=== PATIENT | male | born 1960 ===

== ENCOUNTER 2025-05-10 07:54 | Inpatient (IN) | payer MEDICARE, OTHER ==
[2025-05-10] VITALS (10 sets, daily range): BP systolic 100–157; BP diastolic 44–97; PULSE 69–84; RESP 15–24; TEMP 97.4–98; O2SAT 93–99
[~2025-05-10] VITALS: Ht 177.8 cm; Wt 143.3 kg
--- NOTE | 2025-05-10 08:05 | ED.PDOC ---
SOB-HPI HPI Comments 64-year-old male presents here with shortness of breath. 911 was called at home. Patient was diaphoretic had blue lips had increased work of breathing. He was placed on CPAP by paramedics. He was brought to the ER. Upon his ER arrival continued to be short of breath upon removing the CPAP and BiPAP was immediately initiated. Patient states he has not been recently. No recent fever. Mild cough. He does have a history of CHF and has a history of fluid in his lungs. History is limited due to patient being short of breath on unable to speak. Chief Complaint: Shortness of Breath Time Seen by MD: 08:04 Reviewed notes: Medications, Allergies Information Source: Patient, Emergency Med Personnel Mode of Arrival: EMS Severity: Moderate Timing: Hours Duration: Since onset Context: At Rest, With Light Exertion, With Heavy Exertion History of: CHF, Other (HTN, DC ) Prehospital treatment: None Associated Signs and Symptoms: None Radiation: No Radiation If cough with SOB: Non-Productive Past Medical History PAST MEDICAL HISTORY: CHF, HTN, DC Past Medical History (Other): History of myocardial infarction Surgical History: Denies all surgeries Family History Family History: Reviewed,noncontributory to illness, No family hx of Cancer, No family hx of DM, No family hx of Heart kenisha, No family hx of HTN, No family hx ofKidney kenisha, No family hx of Liver kenisha, No family hx of Lung kenisha, No family hx of Stroke Social History Smoker: Non-Smoker Alcohol: Denies ETOH Use Drugs: Denies Drug Use Lives In: Home Constitutional: denies: chills, diaphoresis, fatigue, fever, malaise, sweats, weakness, others EENTM: denies: blurred vision, double vision, ear bleeding, ear discharge, ear drainage, ear pain, ear ringing, eye pain, eye redness, hearing loss, mouth pain, mouth swelling, nasal discharge, nose bleeding, nose congestion, nose pain, photophobia, tearing, throat pain, throat swelling, voice changes, others Respiratory: reports: SOB at rest, shortness of breath, SOB with excertion; denies: cough, hemoptysis, orthopnea, stridor, wheezing, others Cardiovascular: denies: chest pain, dizzy spells, diaphoresis, Dyspnea on exertion, edema, irregular heart beat, left arm pain, lightheadedness, palpitations, PND, syncope, others Gastrointestinal: denies: abdomen distended, abdominal pain, blood streaked bowels, constipated, diarrhea, dysphagia, difficulty swallowing, hematemesis, melena, nausea, poor appetite, poor fluid intake, rectal bleeding, rectal pain, vomiting, others Genitourinary: denies: burning, dysuria, flank pain, frequency, hematuria, incontinence, penile discharge, penile sore, pain, testicle pain, testicle swelling, urgency, others Neurological: denies: dizziness, fainting, headache, left sided numbness, left sided weakness, numbness, paresthesia, pre-existing deficit, right sided numbness, right sided weakness, seizure, speech problems, tingling, tremors, weakness, others Musculoskeletal: denies: back pain, gout, joint pain, joint swelling, muscle pain, muscle stiffness, neck pain, others Integumetry: denies: bruises, change in color, change in hair/nails, dryness, laceration, lesions, lumps, rash, wounds, others Allergic/Immunocompromised: denies: Difficulty Healing, Frequent Infections, Hives, Itching, others Hematologic/Lymphatic: denies: anemia, blood clots, easy bleeding, easy bruising, swollen glands, others Endocrine: denies: excessive hunger, excessive sweating, excessive thirst, excessive urination, flushing, intolerance to cold, intolerance to heat, unexplained weight gain, unexplained weight loss, others Psychiatric: denies: anxiety, bipolar disorder, depression, hopeless, panic disorder, schizophrenia, sleepless, suicidal, others All Other Systems: Reviewed and Negative Physical Exam Exam Comments Patient on CPAP when move to BiPAP patient in between had increased work of breathing tachypneic tachycardic General Appearance: Severe Distress HEENT: Normal ENT Inspection, Pharynx Normal, TMs Normal Neck: Full Range of Motion, Non-Tender, Normal, Normal Inspection Respiratory: Respiratory Distress, Other (Crackles to right lung field) Cardiovascular: No Edema, No JVD, No Murmur, No Gallop, Normal Peripheral Pulses, Regular Rate/Rhythm Breast Exam: Deferred Gastrointestinal: No Organomegaly, Non Tender, No Pulsatile Mass, Normal Bowel Sounds, Soft Genitalia: Deferred Pelvic: Deferred Rectal: Deferred Extremities: No calf tenderness, Normal capillary refill, Normal inspection, Normal range of motion, Non-tender, No pedal edema Musculoskeletal : Apperance: Normal Neurologic: Alert, No Motor Deficits, Normal Affect, Normal Mood, No Sensory Deficits Cerebellar Function: Normal Reflexes: Normal Skin: Dry, Normal Color, Warm Lymphatic: No Adenopathy EKG EKG : Comments Sinus rhythm rate of 79 PVCs left bundle branch block no significant ST changes Was a procedure done? Was a procedure done?: No Differential Dx Differential Diagnosis: Anxiety, Asthma, Bronchitis, CHF, COPD, Hypertension, Myocardial infarction, Panic Attack, Pneumonia, Pulmonary Embolism, Respiratory Distress, Sinusitis, Allergic Rhinitis, Otitis Media X-Ray, Labs, Meds, VS Vital Signs Date Time Temp Pulse Resp B/P (MAP) Pulse Ox O2 Delivery O2 Flow Rate FiO2 05/10/25 09:04 97.4 84 24 157/97 96 35 97.4 05/10/25 08:10 88 157/97 Facial BiPAP Mask 35 05/10/25 07:55 97.4 86 26 157/97 98 97.4 Lab Test 05/10/25 09:22 05/10/25 08:26 Range/Units Blood Gas Specimen Type Arterial Blood Gas Sample Site Right radial Blood Gas Patient Temperature 37.0 Arterial Blood Date Drawn [id number] Arterial Blood pH 7.433 7.350-7.450 Arterial Blood Partial Pressure CO2 36.7 35.0-48.0 mmHg Arterial Blood Partial Pressure O2 84.2 83.0-108.0 mmHg Arterial Blood HCO3 24.0 21.0-28.0 mmol/L Arterial Blood Oxygen Saturation 96.5 94.0-98.0 % Arterial Blood Base Excess 0.1 -2.0-3.0 mmol/L Arterial Blood Oxyhemoglobin 94.8 94.0-98.0 % Arterial Blood Carboxyhemoglobin 1.5 0.5-1.5 % Arterial Blood Methemoglobin 0.3 0.0-1.5 % Keron Test Yes Blood Gas Total Hemoglobin 14.60 13.5-17.5 g/dL Blood Gas Set Respiration Rate 12.0 Blood Gas Modality Mask - bipap FiO2 % 35.0 Blood Gas EPAP 5 Blood Gas IPAP 15 White Blood Count 5.3 4.4-10.8 10^3/uL Red Blood Count 4.58 4.5-5.90 10^6/uL Hemoglobin 14.6 13.5-17.5 g/dL Hematocrit 43.1 41.0-53.0 % Mean Corpuscular Volume 94.0 80.0-100.0 fL Mean Corpuscular Hemoglobin 31.9 28.0-32.0 pg Mean Corpuscular Hemoglobin Concent 33.9 32.0-36.0 g/dL Red Cell Distribution Width 13.7 11.8-14.3 % Platelet Count 198 140-450 10^3/uL Mean Platelet Volume 8.9 6.9-10.8 fL Neutrophils (%) (Auto) 64.0 37.0-80.0 % Lymphocytes (%) (Auto) 26.1 10.0-50.0 % Monocytes (%) (Auto) 5.6 0.0-12.0 % Eosinophils (%) (Auto) 3.8 0.0-7.0 % Basophils (%) (Auto) 0.5 0.0-2.0 % Neutrophils # (Auto) 3.4 1.6-8.6 10 ^3/uL Lymphocytes # (Auto) 1.4 0.4-5.4 10 ^3/uL Monocytes # (Auto) 0.3 0-1.3 10 ^3/uL Eosinophils # (Auto) 0.2 0-0.8 10 ^3/uL Basophils # (Auto) 0 0-0.2 10 ^3/uL Nucleated Red Blood Cells 0.1 % Sodium Level 139 136-145 mmol/L Potassium Level 4.1 3.5-5.1 mmol/L Chloride Level 103 98-107 mmol/L Carbon Dioxide Level 28 20-31 mmol/L Anion Gap 8 5-15 Blood Urea Nitrogen 14 9-23 mg/dL Creatinine 1.04 0.700-1.30 mg/dL Glomerular Filtration Rate Calc 80 >90 mL/min BUN/Creatinine Ratio 13.5 10.0-20.0 Serum Glucose 234 H 74-106 mg/dL Calcium Level 8.8 8.7-10.4 mg/dL Troponin I High Sensitivity 15 </=54 ng/L B-Type Natriuretic Peptide 379.24 0-100 pg/mL [facility] [address] [facility] [address] Ph: [phone] DIAGNOSTIC IMAGING Diagnostic Imaging Report : [id number] Signed PATIENT: VALENTIN ROMERO ACCT: [id number] UNIT: [id number] : 1960 LOC: ER ROOM / BED: / AGE / SEX: 64 / M ADM STATUS: REG ER SERVICE 5 ORDERING PHYSICIAN: NASRIN HARPER MD PROCEDURE(s): CXRP - CHEST PORTABLE REASON: Shortness of breath ORDER NUMBER(s): [id number], ACCESSION NUMBER(s): [id number] CHEST RADIOGRAPH Indication: Shortness of breath Technique: Single frontal view of the chest was obtained COMPARISON: None FINDINGS: Lines and Tubes: None Lungs: Severe multifocal airspace disease Pleura: No effusion. No pneumothorax. Cardiomediastinal contours: Cardiomegaly Bones: Unremarkable IMPRESSION: Severe multifocal airspace disease. 64-year-old male with a known history of CHF presents here with likely CHF exa cerbation. He was found to be diaphoretic pale with increased work of breathing and cyanotic lips upon medic arrival. He was immediately placed on CPAP upon medic arrival. We attempted to take him off the CPAP however patient had significant work of breathing and was immediately placed on BiPAP by myself. Initially placed on 12/5 setting however he continued to require more support and was changed to 15/5. At this time patient is much more comfortable. I spoke with the patient's daughter Jessica over the phone. At this time CBC, BMP BNP chest x-ray troponin ABG and EKG has been ordered. At this time blood work has returned. CBC, BMP within normal limits. BNP slightly elevated in the 300s. Chest x-ray with evidence of severe multifocal airspace disease. EKG with PVC has been no significant ST changes. ABG has been reviewed by myself and are within parameters. Troponin is negative. At this time however patient is still requires BiPAP given his significant work of breathing. I have given him albuterol, ipratropium and dexamethasone. Hospitalist team has been contacted. Images Reviewed?: Images reviewed and evaluated by me Time of 1ST Reevaluation: 08:55 Reevaluation 1ST: Unchanged Patient Education/Counseling: Diagnosis, Treatment Family Education/Counseling: No Family Present SEPSIS Sepsis Screen Physician Orders Chest Portable (05/10/25 08:06) Fine Dining Server (05/10/25 08:06) Blood Pressure (05/10/25 08:06) Pulse Oximetry (05/10/25 08:06) Electrocardigram (05/10/25 08:06) Troponin-I Hs (05/10/25 09:06) Troponin-I Hs (05/10/25 11:06) Electrocardigram (05/10/25 09:06) Electrocardigram (05/10/25 11:06) BIPAP (05/10/25 08:10) Abg W/ Co-Ox (05/10/25 09:10) Vital Signs Date Time Temp Pulse Resp B/P (MAP) Pulse Ox O2 Delivery O2 Flow Rate FiO2 05/10/25 09:04 97.4 84 24 157/97 96 35 97.4 05/10/25 08:10 88 157/97 Facial BiPAP Mask 35 05/10/25 07:55 97.4 86 26 157/97 98 97.4 Laboratory Tests Test 05/10/25 08:26 White Blood Count 5.3 10^3/uL (4.4-10.8) Departure 1 Departure Time of Disposition: 08:21 Impression: Primary Impression: Shortness of breath Additional Impression: Respiratory failure Qualified Codes: J96.00 - Acute respiratory failure, unspecified whether with hypoxia or hypercapnia Disposition: ADMITTED INPATIENT Condition: Guarded Critical Care Note Critical Care Time?: Yes (45 min-critical care time only) Critical care comment: I was called to see the patient immediately upon arrival. Patient on CPAP. Concern for immediate respiratory deterioration. Time spent multiple re- evaluations, evaluating ABG, speaking to hospitalist team Stability Stability form required: No Heart Score Heart Score: Heart Score Response (Comments) Value History Slightly Suspicious 0 EKG Repolarization Disturb 1 Age >65 2 Risk Factors >3 or Hx ASHD 2 Troponin Normal limit 0 Total 5 I personally scribed for NASRIN HARPER MD ([employer]) on 05/10/25 at 08:05. Electronically submitted by Ashley Almanza ([employer]). I personally scribed for NASRIN HARPER MD ([email or web address]) on 05/10/25 at 08:37. Electronically submitted by Ashley Almanza ([employer]). I personally scribed for NASRIN HARPER MD ([email or web address]) on 05/10/25 at 08:46. Electronically submitted by Ashley Almanza ([email or web address]). NASRIN HARPER MD May 10, 2025 08:05
[2025-05-10 08:42] LABS: Hematocrit 43.1 % (41.0-53.0); Hemoglobin 14.6 g/dL (13.5-17.5); Mean Corpuscular Hemoglobin 31.9 pg (28.0-32.0); Mean Corpuscular Volume 94.0 fL (80.0-100.0); Nucleated Red Blood Cells % 0.1 %
--- NOTE | 2025-05-10 08:42 | DVH ---
CHEST RADIOGRAPH Indication: Shortness of breath Technique: Single frontal view of the chest was obtained COMPARISON: None FINDINGS: Lines and Tubes: None Lungs: Severe multifocal airspace disease Pleura: No effusion. No pneumothorax. Cardiomediastinal contours: Cardiomegaly Bones: Unremarkable IMPRESSION: Severe multifocal airspace disease.
[2025-05-10 08:52] LABS: Chloride 103 mmol/L (98-107); Potassium 4.1 mmol/L (3.5-5.1); Sodium 139 mmol/L (136-145)
[2025-05-10 08:53] LABS: Anion Gap 8 (5-15); Calcium 8.8 mg/dL (8.7-10.4); Carbon Dioxide 28 mmol/L (20-31)
[2025-05-10 08:58] LABS: BUN/Creatinine Ratio 13.5 (10.0-20.0); Blood Urea Nitrogen 14 mg/dL (9-23); Glucose 234 mg/dL (74-106)
[2025-05-10 09:27] LABS: Base Excess 0.1 mmol/L (-2.0-3.0)
[2025-05-10] MEDS: IPRATROPIUM BROM 0.5 MG/2.5ML INH SOL NEB ONE (09:54)
[2025-05-10] MEDS: ALBUTEROL SULF 2.5 MG/0.5ML(0.5%) NEB SOLN NEB ONE (09:54)
--- NOTE | 2025-05-10 10:02 | DVHHP2 ---
History of Present Illness Reason for Visit: SOB History of Present Illness Codey Persaud is a 64-year-old male with past medical history of CHF, hypertension, left arm tendon surgery, and OR who presents to the ED with shortness of breath that started early this morning around 6. Patient also reports left leg cramping that started around 3:00 a.m., reports 7/10 cramping like and intermittent pain. Patient reports that he extends his left foot upright using his right foot and it helps relieve the cramping pain. Patient also reports voiding dark urine. 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 Patient is currently on an Oxymizer. Patient denies any recent sick contacts, recent trauma or injury, recent ingestion of spoiled food, chest pain, fever, chills, lightheadedness, weakness, dizziness, abdominal pain, nausea, vomiting, or diarrhea. Cardiovascular: CHF, HTN, OR Past Surgical History: Other (Left arm tendon surgery) Family History: DM, Hypertension, Other (Mom with diabetes and hypertension. Dad with CABG.) Smoke: No ALCOHOL: none Drugs: None Lives: with Family Domestic Violence: Neg Review of Systems Respiratory: Shortness of breath Musculoskeletal: leg pain (Left) Allergies: Coded Allergies: Penicillins (Verified Allergy, Unknown, 05/10/25) Exam Vital Signs Vital Signs Date Time Temp Pulse Resp B/P (MAP) Pulse Ox O2 Delivery O2 Flow Rate FiO2 05/10/25 09:57 24 97 Oxymizer 6 N/A 05/10/25 09:04 97.4 84 157/97 97.4 General Appearance: Alert, Oriented X3, Cooperative, mild distress HEENT: Atraumatic, PERRLA, EOMI, Mucous membr. moist/pink Respiratory: Normal air movement Cardiovascular: Regular rate, Normal S1, Normal S2 Abdominal: Normal bowel sounds, Soft Extremities: No clubbing, No cyanosis Neuro: Normal speech, Strength at 5/5 X4 ext, Normal tone, Sensation intact Psych/Mental Status: Mental status NL, Mood NL Labs/Xrays Labs Test 05/10/25 09:52 05/10/25 09:22 05/10/25 08:26 Range/Units Blood Gas Specimen Type Arterial Blood Gas Sample Site Right radial Blood Gas Patient Temperature 37.0 Arterial Blood Date Drawn [id number] Arterial Blood pH 7.433 7.350-7.450 Arterial Blood Partial Pressure CO2 36.7 35.0-48.0 mmHg Arterial Blood Partial Pressure O2 84.2 83.0-108.0 mmHg Arterial Blood HCO3 24.0 21.0-28.0 mmol/L Arterial Blood Oxygen Saturation 96.5 94.0-98.0 % Arterial Blood Base Excess 0.1 -2.0-3.0 mmol/L Arterial Blood Oxyhemoglobin 94.8 94.0-98.0 % Arterial Blood Carboxyhemoglobin 1.5 0.5-1.5 % Arterial Blood Methemoglobin 0.3 0.0-1.5 % Keron Test Yes Blood Gas Total Hemoglobin 14.60 13.5-17.5 g/dL Blood Gas Set Respiration Rate 12.0 Blood Gas Modality Mask - bipap FiO2 % 35.0 Blood Gas EPAP 5 Blood Gas IPAP 15 White Blood Count 5.3 4.4-10.8 10^3/uL Red Blood Count 4.58 4.5-5.90 10^6/uL Hemoglobin 14.6 13.5-17.5 g/dL Hematocrit 43.1 41.0-53.0 % Mean Corpuscular Volume 94.0 80.0-100.0 fL Mean Corpuscular Hemoglobin 31.9 28.0-32.0 pg Mean Corpuscular Hemoglobin Concent 33.9 32.0-36.0 g/dL Red Cell Distribution Width 13.7 11.8-14.3 % Platelet Count 198 140-450 10^3/uL Mean Platelet Volume 8.9 6.9-10.8 fL Neutrophils (%) (Auto) 64.0 37.0-80.0 % Lymphocytes (%) (Auto) 26.1 10.0-50.0 % Monocytes (%) (Auto) 5.6 0.0-12.0 % Eosinophils (%) (Auto) 3.8 0.0-7.0 % Basophils (%) (Auto) 0.5 0.0-2.0 % Neutrophils # (Auto) 3.4 1.6-8.6 10 ^3/uL Lymphocytes # (Auto) 1.4 0.4-5.4 10 ^3/uL Monocytes # (Auto) 0.3 0-1.3 10 ^3/uL Eosinophils # (Auto) 0.2 0-0.8 10 ^3/uL Basophils # (Auto) 0 0-0.2 10 ^3/uL Nucleated Red Blood Cells 0.1 % Sodium Level 139 136-145 mmol/L Potassium Level 4.1 3.5-5.1 mmol/L Chloride Level 103 98-107 mmol/L Carbon Dioxide Level 28 20-31 mmol/L Anion Gap 8 5-15 Blood Urea Nitrogen 14 9-23 mg/dL Creatinine 1.04 0.700-1.30 mg/dL Glomerular Filtration Rate Calc 80 >90 mL/min BUN/Creatinine Ratio 13.5 10.0-20.0 Serum Glucose 234 H 74-106 mg/dL Calcium Level 8.8 8.7-10.4 mg/dL B-Type Natriuretic Peptide 379.24 0-100 pg/mL CHEST RADIOGRAPH Indication: Shortness of breath Technique: Single frontal view of the chest was obtained COMPARISON: None FINDINGS: Lines and Tubes: None Lungs: Severe multifocal airspace disease Pleura: No effusion. No pneumothorax. Cardiomediastinal contours: Cardiomegaly Bones: Unremarkable IMPRESSION: Severe multifocal airspace disease. SEPSIS Sepsis Screen Date sepsis recognized/suspect: May 10, 2025 Time Sepsis recognized/suspect: 754 Recent Procedure: No On Antibiotic Therapy: No Respiratory Rate >20: Yes Heart Rate >90: No Temp<36 C (96.8 F) or >38.3 C: No SBP <90 or MAP <65 mmHG: No New Acute Mental Status Change: No Is the patient on CPAP, BIPAP,: Yes Physician Orders Chest Portable (05/10/25 08:06) Android Framework Developer (05/10/25 08:06) Blood Pressure (05/10/25 08:06) Pulse Oximetry (05/10/25 08:06) Electrocardigram (05/10/25 08:06) Troponin-I Hs (05/10/25 09:06) Troponin-I Hs (05/10/25 11:06) Electrocardigram (05/10/25 09:06) Electrocardigram (05/10/25 11:06) BIPAP (05/10/25 08:10) Abg W/ Co-Ox (05/10/25 09:10) Vital Signs Date Time Temp Pulse Resp B/P (MAP) Pulse Ox O2 Delivery O2 Flow Rate FiO2 05/10/25 09:57 24 97 Oxymizer 6 N/A 05/10/25 09:04 97.4 84 24 157/97 96 35 97.4 05/10/25 08:28 79 05/10/25 08:10 88 157/97 Facial BiPAP Mask 35 05/10/25 07:55 97.4 86 26 157/97 98 97.4 Laboratory Tests Test 05/10/25 08:26 White Blood Count 5.3 10^3/uL (4.4-10.8) Medications Medications Dose Ordered Sig/Leonor Route Start Time Stop Time Status Last Admin Dose Admin Albuterol 10 mg ONCE ONCE NEB 05/10/25 09:45 05/10/25 09:46 DC 05/10/25 09:54 10 MG Ipratropium Stearns 0.5 mg ONCE ONCE NEB 05/10/25 09:45 05/10/25 09:46 DC 05/10/25 09:54 0.5 MG Assessment/Plan Assessment/Plan Assessment Acute on chronic CHF exacerbation Acute hypoxic respiratory failure likely due to pneumonia Left lower extremity pain rule out DVT Morbid obesity History of hypertension History of OR History of left arm tendon surgery Plan Admit to [facility] IV antibiotics-ceftriaxone Supplemental oxygen Duo nebs Steroids EKG Troponin BNP Diurese Strict I&Os Daily weight Hemoglobin A1c ISS and Accu-Cheks UA UDS ESR CRP Echo ordered D-dimer Bilateral lower extremity venous ultrasound CK Diet Home medications reconciled DVT prophylaxis-Lovenox PUD prophylaxis-PPIs Discussed plan of care with patient and nurse Counseled patient on lifestyle modifications, diet, and exercise [id number] Preventive counseling healthy eating habits, physical activity, and regular checkups Plan discussed with: Patient, Spouse, Daughter Date of Service: May 10, 2025 Billing Provider: MING PEREYRA Common Visit Codes: 08173-OEFIMIT INP/OBS CARE (HIGH) Secondary Visit Codes: 75648-[id number] COUNSELING IND MING PEREYRA May 10, 2025 10:02
[2025-05-10] MEDS ORDERED: ONDANSETRON HCL 4 MG/2 ML VIAL IV PRN (10:15)
[2025-05-10] MEDS ORDERED: DEXTROSE (50%) 50ML SYRG IV PRN (10:15)
[2025-05-10] MEDS ORDERED: ACETAMINOPHEN 325 MG TAB PO PRN (10:15)
--- NOTE | 2025-05-10 11:32 | ECG ---
[facility] Test Date: 2025-05-10 Test Time: 08:25:41 Pat Name: VALENTIN ROMERO Department: [facility] ED Room: [address] [place] [address] Gender: M Forensic Examiner: PIA : [id number] Requested By: NASRIN HARPER Order Number: [id number] Reading MD: Maximo Gutierrez Measurements Intervals [place] Rate: 79 P: 16 FL: 216 QRS: -32 QRSD: 146 T: 128 QT: 421 QTc: 483 Interpretive Statements Sinus rhythm Ventricular premature complex Borderline prolonged FL interval Left bundle branch block Electronically Signed On 05-10-2025 20:42:10 PDT by Maximo Gutierrez Please click the below link to view image of tracing.
[2025-05-10] MEDS: ACCU-CHEK COMFORT CURVE STRIP VI SCH (12:17)
[2025-05-10] MEDS: InsuLIN REG 1unit/0.01ml Soln (100units/ml) SC SCH (12:21)
[2025-05-10 12:33] LABS: Urine Protein, UAD Negative (Negative)
[2025-05-10] MEDS: ENOXAPARIN SOD 40 MG/0.4 ML SYRINGE SC SCH (12:34)
[2025-05-10 12:47] LABS: Amphetamine Screen, Urine Neg (NEGATIVE); Barbiturate Scree,Urine Neg (NEGATIVE); Benzodiazephine Screen, Urine Neg (NEGATIVE); Cannabinoid Screen, Urine Neg (NEGATIVE); Cocaine Screen, Urine Neg (NEGATIVE); Opiate Scree,Urine Neg (NEGATIVE); Phencyclidine Screen, Urine Neg (NEGATIVE)
[2025-05-10] MEDS: IPRATROPIUM BROM 0.5 MG/2.5ML INH SOL NEB SCH (13:16)
[2025-05-10] MEDS: ALBUTEROL SULF 2.5 MG/0.5ML(0.5%) NEB SOLN NEB SCH (13:16)
--- NOTE | 2025-05-10 13:26 | DVH ---
CLINICAL HISTORY: r/o dvt TECHNIQUE: Color and duplex doppler imagine of the bilateral lower extremity veins was performed. Ves siddhartha compression and augmentation if possible was also performed. COMPARISON: None FINDINGS: Right Lower Extremity: Right common femoral vein: Normal compressibility and flow. Right superficial femoral vein: Normal compressibility and flow. Right popliteal vein: Normal compressibility and flow. Proximal calf veins demonstrate flow. Left Lower Extremity: Left common femoral vein: Normal compressibility and flow. Left superficial femoral vein: Normal compressibility and flow. Left popliteal vein: Normal compressibility and flow. Proximal calf veins demonstrate flow. IMPRESSION: NO SONOGRAPHIC EVIDENCE FOR DEEP VENOUS THROMBOSIS IN THE BILATERAL LOWER EXTREMITY VEINS.
--- NOTE | 2025-05-10 18:33 | DVHSR ---
APPROVED REPORT EXAM: Two-dimensional and M-mode echocardiogram with Doppler and color Doppler. Blood Pressure: 157/97 mmHg INDICATION CHF exac RISK FACTORS Obesity: Height: 5'10", Weight: 315 DIMENSIONS LVDd6.9 (3.8-5.7cm)LA (2D)4.6 (1.9-4.0cm)Aortic Root3.7 (2.0-3.7cm) LVDs6.6 (2.5-4.0cm)LA (MM) (1.9-4.0cm)Aortic Cusp Exc2.1 (1.5-2.0cm) EF (%) 10.0 (55-70%)Rt. Atrium4.7 (1.9-4.0cm)Asc. Aorta cm IVSd1.3 (0.7-1.1cm)RV (D) (1.8-2.4cm) PWd1.1 (0.7-1.1cm) Mitral Valve MitralMitral Stenosis E wave0.82m/sMV Mean GR.mmHg A wave0.57m/sMV Peak GR.mmHg E/A ratio1.42D MVAcm2 DECEL [id number] 1/2 Timems Aortic Valve Aortic ValveAortic Stenosis V10.72m/Joanna Mean GR.4mmHg V21.36m/Joanna Peak GR.7mmHg LVOT Diameter2.4 (1.8-2.4cm)Doppler AVA2.39cm2 Pulmonic Valve V21.16m/s Tricuspid Valve TR Velocity3.57m/s [id number] Other Information Technically limited study due to body habitus. Conclusion DILATED LV SEVERE GLOBAL HYPOKINESIS LV EF IS ONLY 10% DYSKINESIS OF IVS MODERATELY DILATED LA AND RA RVSP IS 59 MM OF HG AND IS VERY HIGH SEVERE PULMONARY HYPERTENSION GROSSLY NORMAL VALVES NO EFFUSION
[2025-05-11] VITALS (16 sets, daily range): BP systolic 86–114; BP diastolic 50–57; PULSE 60–85; RESP 14–20; TEMP 97.6–98.7; O2SAT 85–99
[2025-05-11] MEDS ORDERED: ALL300T GT (00:38)
[2025-05-11] MEDS ORDERED: CARV12.544 PO (01:17)
[2025-05-11] MEDS ORDERED: SACU1TAB4 PO (01:17)
[2025-05-11 07:52] LABS: Hematocrit 39.9 % (41.0-53.0); Hemoglobin 13.9 g/dL (13.5-17.5); Mean Corpuscular Hemoglobin 32.6 pg (28.0-32.0); Mean Corpuscular Volume 93.7 fL (80.0-100.0); Nucleated Red Blood Cells % 0.0 %
[2025-05-11 08:12] LABS: Alanine Aminotransferase 29 U/L (7-40); Albumin 3.7 g/dL (3.2-4.8); Alkaline Phosphatase 54 U/L (46-116); Anion Gap 11 (5-15); BUN/Creatinine Ratio 14.9 (10.0-20.0); Blood Urea Nitrogen 15 mg/dL (9-23); Calcium 8.8 mg/dL (8.7-10.4); Carbon Dioxide 27 mmol/L (20-31); Chloride 104 mmol/L (98-107); Potassium 3.9 mmol/L (3.5-5.1); Sodium 142 mmol/L (136-145); Total Protein 6.4 g/dL (5.7-8.2)
[2025-05-11 08:14] LABS: Bilirubin, Total 1.3 mg/dL (0.2-1.0); Glucose 214 mg/dL (74-106)
[2025-05-11] MEDS: FUROSEMIDE 40 MG/4 ML VIAL IV SCH (09:27)
--- NOTE | 2025-05-11 13:48 | DVHPN2 ---
Reviewed: Care Plan, H&P, Labs, Medications, Previous Orders, Radiology Changes from previous H/P or p: No Changes Respiratory: Shortness of breath Musculoskeletal: leg pain (Left) Objective Vitals Vital Signs Date Time Temp Pulse Resp B/P (MAP) Pulse Ox O2 Delivery O2 Flow Rate FiO2 05/11/25 10:34 72 18 99 05/11/25 10:24 Nasal Cannula 2.0 05/11/25 10:24 28 05/11/25 09:27 94/50 05/11/25 09:00 97.6 97.6 Intake/Output Intake and Output 05/11/25 07:00 Intake Total 200 ml Balance 200 ml Intake Oral 200 ml Medications Current Medications Medications Dose Ordered Sig/Leonor Route Start Time Stop Time Status Last Admin Dose Admin Ceftriaxone Sodium 50 ml @ 100 mls/hr DAILY@09 IV 05/10/25 10:15 05/11/25 09:27 100 MLS/HR Diagnostic Test (Pha) 1 strip ACHS 05/10/25 11:30 05/11/25 11:46 1 STRIP Insulin Human Regular ACHS SC 05/10/25 11:30 05/11/25 11:48 4 UNITS Dextrose 50 ml UD PRN IV 05/10/25 10:15 Furosemide 40 mg DAILY IV 05/11/25 10:00 05/11/25 09:27 40 MG Albuterol 2.5 mg Q4HWA NEB 05/10/25 14:00 05/11/25 13:27 2.5 MG Ipratropium [place] 0.5 mg Q4HWA NEB 05/10/25 14:00 05/11/25 13:27 0.5 MG Ondansetron HCl 4 mg Q4HP PRN IV 05/10/25 10:15 Acetaminophen 650 mg Q6HP PRN PO 05/10/25 10:15 Enoxaparin Sodium 40 mg DAILY SC 05/10/25 11:45 Laboratory Results Laboratory Tests 05/11/25 06:46 Chemistry Test 05/11/25 06:46 Albumin 3.7 g/dL (3.2-4.8) Calcium Level 8.8 mg/dL (8.7-10.4) Total Protein 6.4 g/dL (5.7-8.2) LFT Test 05/11/25 06:46 Alanine Aminotransferase (ALT) 29 U/L (7-40) Alkaline Phosphatase 54 U/L (46-116) Aspartate Amino Transferase (AST) 27 U/L (13-40) Total Bilirubin 1.3 mg/dL (0.2-1.0) H Urinalysis Test 05/10/25 10:59 Urine Color Light-yellow (Yellow) Urine Clarity Clear (Clear) Urine pH 5.5 (5.0-9.0) Urine Specific [place] 1.006 (1.001-1.035) Urine Protein Negative (Negative) Urine Ketones Negative (Negative) Urine Blood Negative /uL (Negative) Urine Nitrite Negative (Negative) Urine Bilirubin Negative (Negative) Urine Urobilinogen Normal mg/dL (Negative) Urine Leukocyte Esterase Negative /uL (Negative) Urine RBC <1 /hpf (0 - 3) Urine Microscopic WBC < 1 /HPF (0-3) Urine Squamous Epithelial Cells Few /hpf (<5) Urine Bacteria None seen /hpf (None Seen) Urine Glucose 4+ mg/dL (Normal) H Labs and/or images reviewed: Labs reviewed by me, Image(s) reviewed by me Assessment/Plan Assessment/Plan Acute on chronic CHF exacerbation Lasix ejection fraction 10 percent, cardiology consult with Dr.M Gutiérrez Acute hypoxic respiratory failure likely due to pneumonia oxygen by nasal cannula Bilateral community-acquired pneumonia Gram-positive versus Gram-negative: Rocephin azithromycin Shae test pending Rapid flu test pending Hypertension History of CA Severe pulmonary hypertension Use of oxygen at home Left lower extremity pain , DVT ruled out Morbid obesity Time spent 70 minutes Advanced care planning time 20 minutes Patient is full code Plan discussed with: Patient My Orders Orders - AYLA GAMA MD Procedure Category Date Status Time Covid19 Antigen Avis LAB 05/11/25 Logged Rapid Influenza A&B LAB 05/11/25 Logged 13:44 Azithromycin 500mg/ PHA 05/12/25 Transmitted 250ml (Zithromax 50 10:00 Azithromycin 500mg/ PHA 05/11/25 Transmitted 250ml (Zithromax 50 13:45 Date of Service: May 11, 2025 Billing Provider: AYLA GAMA MD Common Visit Codes: [id number] CARE 30-74 MIN AYLA GAMA MD May 11, 2025 13:48
[2025-05-11] MEDS: AZITHROMYCIN 500MG/ 250ML 250 ML IV ONE (15:59)
[2025-05-11 16:05] LABS: COVID19 ANTIGEN SOFIA FIA NEGATIVE (NEGATIVE)
[2025-05-12] VITALS (15 sets, daily range): BP systolic 94–126; BP diastolic 63–79; PULSE 70–91; RESP 16–20; TEMP 97.7–98.6; O2SAT 93–100
--- NOTE | 2025-05-12 12:31 | DVHPN2 ---
Reviewed: Care Plan, H&P, Labs, Medications, Previous Orders, Radiology Changes from previous H/P or p: No Changes Respiratory: Shortness of breath Musculoskeletal: leg pain (Left) Objective Vitals Vital Signs Date Time Temp Pulse Resp B/P (MAP) Pulse Ox O2 Delivery O2 Flow Rate FiO2 05/12/25 10:00 94/64 05/12/25 09:50 78 16 99 05/12/25 09:44 Room Air* 0 21 05/12/25 05:00 97.7 97.7 Intake/Output Intake and Output 05/12/25 07:00 Intake Total 920 ml Balance 920 ml Intake Oral 920 ml # Voids 6 Medications Current Medications Medications Dose Ordered Sig/Leonor Route Start Time Stop Time Status Last Admin Dose Admin Ceftriaxone Sodium 50 ml @ 100 mls/hr DAILY@09 IV 05/10/25 10:15 05/12/25 10:56 100 MLS/HR Diagnostic Test (Pha) 1 strip ACHS 05/10/25 11:30 05/12/25 11:23 1 STRIP Insulin Human Regular ACHS SC 05/10/25 11:30 05/12/25 11:23 4 UNITS Dextrose 50 ml UD PRN IV 05/10/25 10:15 Furosemide 40 mg DAILY IV 05/11/25 10:00 05/12/25 10:00 40 MG Albuterol 2.5 mg Q4HWA NEB 05/10/25 14:00 05/12/25 09:44 2.5 MG Ipratropium [place] 0.5 mg Q4HWA NEB 05/10/25 14:00 05/12/25 09:44 0.5 MG Ondansetron HCl 4 mg Q4HP PRN IV 05/10/25 10:15 Acetaminophen 650 mg Q6HP PRN PO 05/10/25 10:15 Enoxaparin Sodium 40 mg DAILY SC 05/10/25 11:45 Azithromycin 250 ml @ 125 mls/hr DAILY IV 05/12/25 10:00 Laboratory Results Laboratory Tests 05/11/25 06:46 Urinalysis Test 05/10/25 10:59 Urine Color Light-yellow (Yellow) Urine Clarity Clear (Clear) Urine pH 5.5 (5.0-9.0) Urine Specific [place] 1.006 (1.001-1.035) Urine Protein Negative (Negative) Urine Ketones Negative (Negative) Urine Blood Negative /uL (Negative) Urine Nitrite Negative (Negative) Urine Bilirubin Negative (Negative) Urine Urobilinogen Normal mg/dL (Negative) Urine Leukocyte Esterase Negative /uL (Negative) Urine RBC <1 /hpf (0 - 3) Urine Microscopic WBC < 1 /HPF (0-3) Urine Squamous Epithelial Cells Few /hpf (<5) Urine Bacteria None seen /hpf (None Seen) Urine Glucose 4+ mg/dL (Normal) H Labs and/or images reviewed: Labs reviewed by me, Image(s) reviewed by me Assessment/Plan Assessment/Plan Acute on chronic CHF exacerbation Lasix, ejection fraction 10 percent, cardiology consult with Acute hypoxic respiratory failure likely due to pneumonia oxygen by nasal cannula Bilateral community-acquired pneumonia Gram-positive versus Gram-negative: Rocephin azithromycin Shae test negative Rapid flu test negative Hypertension History of ID Severe pulmonary hypertension Use of oxygen at home Left lower extremity pain , DVT ruled out Morbid obesity Time spent 55 minutes Advanced care planning time 20 minutes Patient is full code 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
[2025-05-12] MEDS: AZITHROMYCIN 500MG/ 250ML 250 ML IV SCH (13:12)
[2025-05-12 13:56] LABS: Magnesium 1.6 mg/dL (1.6-2.6); Triglycerides 237.0 mg/dL (< 150)
[2025-05-12 13:57] LABS: Cholesterol 184.0 mg/dL (< 200); HDL Cholesterol 47.0 mg/dL (40-59)
--- NOTE | 2025-05-12 15:24 | DVHINCON2 ---
JESSI ARAGON [facility] 05/12/25 1524: Date Seen: May 12, 2025 Referring Physician MD Jaya Reason for Consultation CHF exacerbation History of Present Illness This is a 64-year-old male patient who presents to emergency room with chief complaint of worsening shortness of breath. The patient reports that the shortness of breath began approximately three days prior to emergency room arrival. He denies any chest pain, palpitation, or dizziness. Cardiology has been consulted at this time for CHF exacerbation. Initial twelve lead geo ctrocardiogram found in patient's chart reveals normal sinus rhythm with left bundle branch block,first degree conduction delay, and PVCs. Initial troponin level of 15ng/L. Initial BNP level of 379.24ng/L. Significant past medical history includes congestive heart failure, hypertension, dyslipidemia, type 2 diabetes mellitus, and morbid obesity. The patient reports that he follows up with a supervisor paint department [place]. He reports undergoing multiple coronary angiograms with no catheter based intervention. Past Medical History Past medical history reviewed. No other significant than mentioned above. Past Surgical History Denies any previous surgeries Family History: Diabetes mellitus G8 MOTHER Hypertension G8 MOTHER Family History Family history reviewed. Social History Denies the use of tobacco, alcohol or illicit drugs. Allergies: Coded Allergies: Penicillins (Verified Allergy, Unknown, 05/10/25) Home Meds Reported Medications Carvedilol (Carvedilol) 12.5 Mg Tab, 1 TAB PO BID, #180 TAB 1 Refill 05/11/25 Sacubitril-Valsartan (Entresto 97-103 mg) 1 Tab Tab, 200 TAB PO BIDWM, TAB 05/11/25 Allopurinol (ZYLOPRIM TABLET) 300 Mg Tb, 300 MG GT, TAB 05/11/25 Home Meds Home medications reviewed. Current Medications Current Medications Medications (Trade) Dose Ordered Sig/Leonor Route PRN Reason Start Time Stop Time Status Last Admin Azithromycin 250 ml @ 125 mls/hr DAILY IV 05/12/25 10:00 05/12/25 13:12 Review of Systems Constitutional: No symptom reported Ears, Nose, & Throat: No symptom reported Eyes: No symptom reported Neurological: No symptoms reported Pulmonary/Respiratory: Shortness of breath Cardiovascular: No symptom reported Gastrointestinal: No symptom reported Genitourinary: No symptom reported Musculoskeletal: No symptom reported Skin: No symptom reported Psychiatric: No symptom reported Endocrine: No symptom reported Hematologic/Lymphatic: No symptom reported Vital Signs Vital Signs Date Time Temp Pulse Resp B/P (MAP) Pulse Ox O2 Delivery O2 Flow Rate FiO2 05/12/25 14:25 87 16 100 05/12/25 14:19 Room Air* 0 21 05/12/25 10:00 94/64 05/12/25 05:00 97.7 97.7 Physical Exam General Appearance: Cooperative. Morbidly obese. Pulmonary/Respiratory: Clear, bilateral breaths sounds. Cardiovascular/Chest: Regular rate and rhythm. Peripheral Pulses: 2+ Radial (R). 2+ Radial (L). 2+ Pedal (R). 2+ Pedal (L) Abdominal Exam: Normal bowel sounds. Ankle Exam: 3+ pitting edema Lower extremities: 3+ pitting edema Neuro/Mental Status: A/OX4, coherent. Thoughts/Psych: Normal thought pattern. Appropriate mood and affect. Good judgment and insight. Appearance: No acute distress. Skin Exam: Normal inspection. Normal color. Warm and dry. Labs/Diagnostic Data Labs Test 05/12/25 13:07 05/12/25 05:56 05/11/25 14:52 05/11/25 06:46 Range/Units Magnesium Level 1.6 1.6-2.6 mg/dL Triglycerides Level 237 H < 150 mg/dL Cholesterol Level 184 < 200 mg/dL LDL Cholesterol 123 H < 100 mg/dL HDL Cholesterol 47 40-59 mg/dL Thyroid Stimulating Hormone (TSH) 3.26 0.55-4.78 uIU/mL POC Glucose 175 H 70-106 mg/dl Influenza Type A Antigen Negative Negative Influenza Type B Antigen Negative Negative SARS-CoV-2 Antigen (Rapid) Negative NEGATIVE White Blood Count 9.7 # 4.4-10.8 10^3/uL Red Blood Count 4.26 L 4.5-5.90 10^6/uL Hemoglobin 13.9 13.5-17.5 g/dL Hematocrit 39.9 L 41.0-53.0 % Mean Corpuscular Volume 93.7 80.0-100.0 fL Mean Corpuscular Hemoglobin 32.6 H 28.0-32.0 pg Mean Corpuscular Hemoglobin Concent 34.8 32.0-36.0 g/dL Red Cell Distribution Width 13.5 11.8-14.3 % Platelet Count 189 140-450 10^3/uL Mean Platelet Volume 9.1 6.9-10.8 fL Neutrophils (%) (Auto) 86.0 H 37.0-80.0 % Lymphocytes (%) (Auto) 9.7 L 10.0-50.0 % Monocytes (%) (Auto) 4.3 0.0-12.0 % Eosinophils (%) (Auto) 0.0 0.0-7.0 % Basophils (%) (Auto) 0.0 0.0-2.0 % Neutrophils # (Auto) 8.3 1.6-8.6 10 ^3/uL Lymphocytes # (Auto) 0.9 0.4-5.4 10 ^3/uL Monocytes # (Auto) 0.4 0-1.3 10 ^3/uL Eosinophils # (Auto) 0 0-0.8 10 ^3/uL Basophils # (Auto) 0 0-0.2 10 ^3/uL Nucleated Red Blood Cells 0.0 % Sodium Level 142 136-145 mmol/L Potassium Level 3.9 3.5-5.1 mmol/L Chloride Level 104 98-107 mmol/L Carbon Dioxide Level 27 20-31 mmol/L Anion Gap 11 5-15 Blood Urea Nitrogen 15 9-23 mg/dL Creatinine 1.01 0.700-1.30 mg/dL Glomerular Filtration Rate Calc 83 >90 mL/min BUN/Creatinine Ratio 14.9 10.0-20.0 Serum Glucose 214 H 74-106 mg/dL Calcium Level 8.8 8.7-10.4 mg/dL Total Bilirubin 1.3 H 0.2-1.0 mg/dL Aspartate Amino Transferase (AST) 27 13-40 U/L Alanine Aminotransferase (ALT) 29 7-40 U/L Alkaline Phosphatase 54 46-116 U/L Total Protein 6.4 5.7-8.2 g/dL Albumin 3.7 3.2-4.8 g/dL Test 05/10/25 11:29 05/10/25 10:59 05/10/25 09:52 05/10/25 09:22 Range/Units Troponin I High Sensitivity 45 </=54 ng/L Urine Color Light-yellow Yellow Urine Clarity Clear Clear Urine pH 5.5 5.0-9.0 Urine Specific [place] 1.006 1.001-1.035 Urine Protein Negative Negative Urine Ketones Negative Negative Urine Blood Negative Negative /uL Urine Nitrite Negative Negative Urine Bilirubin Negative Negative Urine Urobilinogen Normal Negative mg/dL Urine Leukocyte Esterase Negative Negative /uL Urine RBC <1 0 - 3 /hpf Urine Microscopic WBC < 1 0-3 /HPF Urine Squamous Epithelial Cells Few <5 /hpf Urine Bacteria None seen None Seen /hpf Urine Glucose 4+ H Normal mg/dL Urine Opiates Screen Neg NEGATIVE Urine Fentanyl Screen Neg NEGATIVE Urine Barbiturates Screen Neg NEGATIVE Urine Phencyclidine Screen Neg NEGATIVE Urine Amphetamines Screen Neg NEGATIVE Urine Benzodiazepines Screen Neg NEGATIVE Urine Cocaine Screen Neg NEGATIVE Urine Cannabinoids Screen Neg NEGATIVE C-Reactive Protein High Sensitivity 0.32 <1.0 mg/dL Blood Gas Specimen Type Arterial Blood Gas Sample Site Right radial Blood Gas Patient Temperature 37.0 Arterial Blood Date Drawn Arterial Blood pH 7.433 7.350-7.450 Arterial Blood Partial Pressure CO2 36.7 35.0-48.0 mmHg Arterial Blood Partial Pressure O2 84.2 83.0-108.0 mmHg Arterial Blood HCO3 24.0 21.0-28.0 mmol/L Arterial Blood Oxygen Saturation 96.5 94.0-98.0 % Arterial Blood Base Excess 0.1 -2.0-3.0 mmol/L Arterial Blood Oxyhemoglobin 94.8 94.0-98.0 % Arterial Blood Carboxyhemoglobin 1.5 0.5-1.5 % Arterial Blood Methemoglobin 0.3 0.0-1.5 % Keron Test Yes Blood Gas Total Hemoglobin 14.60 13.5-17.5 g/dL Blood Gas Set Respiration Rate 12.0 Blood Gas Modality Mask - bipap FiO2 % 35.0 Blood Gas EPAP 5 Blood Gas IPAP 15 Test 05/10/25 08:26 05/10/25 08:23 Range/Units Erythrocyte Sedimentation Rate 13 0-20 mm/hr Hemoglobin A1c 8.1 H <5.7 % A1C B-Type Natriuretic Peptide 379.24 0-100 pg/mL D-Dimer, Quantitative 0.45 0.0-0.49 mg/L FEU Creatine Kinase 228 H 46-171 U/L Assessment Acute on chronic decompensated HFrEF, NYHA class III Nonischemic cardiomyopathy Hypertension Dyslipidemia Type 2 diabetes mellitus, uncontrolled (A1c 8.1%) Severe pulmonary hypertension Morbidly obese Plan/Recommendation We will continue with the following plan/recommendations (): * Transthoracic echocardiogram reveals an EF of 10% * Initiate guideline directed medical therapy for CHF as tolerated by BP * Strict intake and output, daily weights, maintain fluid restriction and low- sodium diet * Preload and afterload reduction * Lipid-lowering agent * Upgrade to telemetry for close cardiac surveillance * LifeVest Patient seen and examined at bedside with . The patient reports regularly following up with his supervisor paint department in [place]. 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 The patient reports that his supervisor paint department in [place] has referred him to a supervisor paint department at [facility]. We will recommend for the patient to be sent home on a LifeVest. The patient may qualify for ICD implantation after three months of uninterrupted guideline directed medical therapy if no improvement in EF. Thank you for allowing us to care for this patient. Please call with any questions or concerns. Critical care time spent: 44 minutes This medical document was created using an electronic medical record system with voice recognition software and computerized dictation system. Although this document has been carefully reviewed, there might still be some phonetic and typographical errors. Occasional wrong-word or ``sound-alike substitutions may have occurred due to the inherent limitations of voice recognition software. These areas are purely typographical due to imperfections of the software programs and do not reflect any compromise in the patient's medical care. Please read the chart carefully and recognize, using context, where these substitutions have occurred. Plan discussed with: Patient NYHA Physical activity limitations: Class3(Marked) ordinary (activity causes symtoms) Date of Service: May 12, 2025 Billing Provider: JESSI ARAGON TOURIST INFORMATION OFFICER Cardiology Common Codes: [id number] INP/OBS CARE (High) Cardiology Consultation Codes: [id number] CONSULT <45MIN SUSU RAMÍREZ MD 05/12/25 1617: Family History: Diabetes mellitus G8 MOTHER Hypertension G8 MOTHER Allergies: Coded Allergies: Penicillins (Verified Allergy, Unknown, 05/10/25) Home Meds Reported Medications Carvedilol (Carvedilol) 12.5 Mg Tab, 1 TAB PO BID, #180 TAB 1 Refill 05/11/25 Sacubitril-Valsartan (Entresto 97-103 mg) 1 Tab Tab, 200 TAB PO BIDWM, TAB 05/11/25 Allopurinol (ZYLOPRIM TABLET) 300 Mg Tb, 300 MG GT, TAB 05/11/25 Plan/Recommendation pt has known EF 10% sees a cards at but was told to go to [facility] pt quit working ,likely should not be driving truck for work, not sure if his cards has stopped this start GDMT, pt has had negative cath consider lifevest, pt morbidly obese, needs to lose a lot of weight pt will set up his own appt at [facility] , he lives near there, he wants to leave [place]a pt seen with cv team Plan discussed with: Patient JESSI ARAGON LOLA May 12, 2025 15:24 SUSU RAMÍREZ MD May 12, 2025 16:17
[2025-05-12 20:03] LABS: Chloride 102 mmol/L (98-107); Potassium 3.7 mmol/L (3.5-5.1); Sodium 142 mmol/L (136-145)
[2025-05-12 20:04] LABS: Anion Gap 10 (5-15); Carbon Dioxide 30 mmol/L (20-31)
[2025-05-12 20:05] LABS: Calcium 8.5 mg/dL (8.7-10.4)
[2025-05-12 20:09] LABS: BUN/Creatinine Ratio 18.8 (10.0-20.0); Blood Urea Nitrogen 19 mg/dL (9-23)
[2025-05-12 20:16] LABS: Glucose 185 mg/dL (74-106); Magnesium 1.5 mg/dL (1.6-2.6)
[2025-05-12] MEDS: ATORVASTATIN 20 MG TAB PO SCH (21:53)
[2025-05-12] MEDS: SACUBITRIL-VALSARTAN 24mg/26mg TAB PO SCH (21:53)
[2025-05-13] VITALS (17 sets, daily range): BP systolic 101–123; BP diastolic 54–81; PULSE 66–89; RESP 18–20; TEMP 98–98.9; O2SAT 93–100
[2025-05-13] MEDS: MAGNESIUM SULFATE 1GM/100ML 100 ML IV SCH (08:24)
[2025-05-13] MEDS: METOPROLOL SUCCINATE XL 50 MG TAB PO SCH (09:58)
[2025-05-13] MEDS: EMPAGLIFLOZIN 10 MG TAB PO SCH (09:59)
--- NOTE | 2025-05-13 10:31 | DVHPN2 ---
Reviewed: Care Plan, H&P, Labs, Medications, Previous Orders, Radiology Changes from previous H/P or p: No Changes Respiratory: Shortness of breath Musculoskeletal: leg pain (Left) Objective Vitals Vital Signs Date Time Temp Pulse Resp B/P (MAP) Pulse Ox O2 Delivery O2 Flow Rate FiO2 05/13/25 10:07 95 Room Air 0.0 05/13/25 10:07 21 05/13/25 09:58 78 115/66 05/13/25 09:00 98.9 18 98.9 Intake/Output Intake and Output 05/13/25 07:00 Intake Total 1300 ml Output Total 790 ml Balance 510 ml Intake Oral 1000 ml IV Total 300 ml Output Urine Total 790 ml # Voids 7 # Bowel Movements 1 Medications Current Medications Medications Dose Ordered Sig/Leonor Route Start Time Stop Time Status Last Admin Dose Admin Ceftriaxone Sodium 50 ml @ 100 mls/hr DAILY@09 IV 05/10/25 10:15 05/13/25 09:56 100 MLS/HR Diagnostic Test (Pha) 1 strip ACHS 05/10/25 11:30 05/13/25 06:04 1 STRIP Insulin Human Regular ACHS SC 05/10/25 11:30 05/13/25 06:05 3 UNITS Dextrose 50 ml UD PRN IV 05/10/25 10:15 Furosemide 40 mg DAILY IV 05/11/25 10:00 05/13/25 09:57 40 MG Albuterol 2.5 mg Q4HWA NEB 05/10/25 14:00 05/13/25 06:25 2.5 MG Ipratropium [place] 0.5 mg Q4HWA NEB 05/10/25 14:00 05/13/25 06:25 0.5 MG Ondansetron HCl 4 mg Q4HP PRN IV 05/10/25 10:15 Acetaminophen 650 mg Q6HP PRN PO 05/10/25 10:15 Enoxaparin Sodium 40 mg DAILY SC 05/10/25 11:45 05/13/25 09:59 40 MG Azithromycin 250 ml @ 125 mls/hr DAILY IV 05/12/25 10:00 05/13/25 09:56 125 MLS/HR Metoprolol Succinate 25 mg DAILY PO 05/13/25 10:00 05/13/25 09:58 25 MG Empaglifozin 10 mg DAILY PO 05/13/25 10:00 05/13/25 09:59 10 MG Sacubitril/ Valsartan 0.5 tab BID PO 05/12/25 22:00 05/13/25 09:59 0.5 TAB Atorvastatin Calcium 40 mg HS PO 05/12/25 22:00 05/12/25 21:53 40 MG Laboratory Results Laboratory Tests 05/11/25 06:46 05/12/25 19:46 Chemistry Test 05/12/25 13:07 05/12/25 19:46 Magnesium Level 1.6 mg/dL (1.6-2.6) 1.5 mg/dL (1.6-2.6) L Calcium Level 8.5 mg/dL (8.7-10.4) L Lipid panel Test 05/12/25 13:07 Cholesterol Level 184 mg/dL (< 200) HDL Cholesterol 47 mg/dL (40-59) Triglycerides Level 237 mg/dL (< 150) H HgA1c, TSH Test 05/12/25 13:07 Thyroid Stimulating Hormone (TSH) 3.26 uIU/mL (0.55-4.78) Urinalysis Test 05/10/25 10:59 Urine Color Light-yellow (Yellow) Urine Clarity Clear (Clear) Urine pH 5.5 (5.0-9.0) Urine Specific [place] 1.006 (1.001-1.035) Urine Protein Negative (Negative) Urine Ketones Negative (Negative) Urine Blood Negative /uL (Negative) Urine Nitrite Negative (Negative) Urine Bilirubin Negative (Negative) Urine Urobilinogen Normal mg/dL (Negative) Urine Leukocyte Esterase Negative /uL (Negative) Urine RBC <1 /hpf (0 - 3) Urine Microscopic WBC < 1 /HPF (0-3) Urine Squamous Epithelial Cells Few /hpf (<5) Urine Bacteria None seen /hpf (None Seen) Urine Glucose 4+ mg/dL (Normal) H Labs and/or images reviewed: Labs reviewed by me, Image(s) reviewed by me Assessment/Plan Assessment/Plan Acute on chronic decompensated HFrEF, NYHA class III, cardiology consult by Dr. 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
--- NOTE | 2025-05-13 14:59 | MEDREC ---
[facility] Intervention Section I [facility] Intervention: Review brant of ABX 48h AIO (PLEASE CONSIDER D/C ANTIBIOTIC IN ABSENCE OF BACTERIAL INFECTION) OTIS WAN PHARMACIST May 13, 2025 14:59
[2025-05-14] VITALS (13 sets, daily range): BP systolic 101–116; BP diastolic 63–75; PULSE 62–80; RESP 18–20; TEMP 98.1–98.6; O2SAT 93–100
[2025-05-14] MEDS ORDERED: SACU1TAB PO (10:42)
[2025-05-14] MEDS ORDERED: EMPA1TAB PO (10:42)
[2025-05-14] MEDS ORDERED: ATOR-507 PO (10:42)
[2025-05-14] MEDS ORDERED: AZIT500T66 PO (10:42)
--- NOTE | 2025-05-14 10:48 | DVHPN2 ---
Reviewed: Care Plan, H&P, Labs, Medications, Previous Orders, Radiology Changes from previous H/P or p: No Changes Respiratory: Shortness of breath Musculoskeletal: leg pain (Left) Objective Vitals Vital Signs Date Time Temp Pulse Resp B/P (MAP) Pulse Ox O2 Delivery O2 Flow Rate FiO2 05/14/25 10:14 71 18 99 05/14/25 10:08 Room Air 0.0 05/14/25 10:08 21 05/14/25 09:00 98.3 105/71 (82) 98.3 Intake/Output Intake and Output 05/14/25 07:00 Intake Total 1560 ml Output Total 300 ml Balance 1260 ml Intake Oral 1560 ml Output Urine Total 300 ml # Voids 8 Medications Current Medications Medications Dose Ordered Sig/Leonor Route Start Time Stop Time Status Last Admin Dose Admin Ceftriaxone Sodium 50 ml @ 100 mls/hr DAILY@09 IV 05/10/25 10:15 05/13/25 09:56 100 MLS/HR Diagnostic Test (Pha) 1 strip ACHS 05/10/25 11:30 05/14/25 07:00 1 STRIP Insulin Human Regular ACHS SC 05/10/25 11:30 05/14/25 06:14 2 UNITS Dextrose 50 ml UD PRN IV 05/10/25 10:15 Furosemide 40 mg DAILY IV 05/11/25 10:00 05/13/25 09:57 40 MG Albuterol 2.5 mg Q4HWA [facility] 05/10/25 14:00 05/14/25 10:06 2.5 MG Ipratropium [place] 0.5 mg Q4HWA [facility] 05/10/25 14:00 05/14/25 10:06 0.5 MG Ondansetron HCl 4 mg Q4HP PRN IV 05/10/25 10:15 Acetaminophen 650 mg Q6HP PRN PO 05/10/25 10:15 Enoxaparin Sodium 40 mg DAILY SC 05/10/25 11:45 05/13/25 09:59 40 MG Azithromycin 250 ml @ 125 mls/hr DAILY IV 05/12/25 10:00 05/13/25 09:56 125 MLS/HR Metoprolol Succinate 25 mg DAILY PO 05/13/25 10:00 05/13/25 09:58 25 MG Empaglifozin 10 mg DAILY PO 05/13/25 10:00 05/13/25 09:59 10 MG Sacubitril/ Valsartan 0.5 tab BID PO 05/12/25 22:00 05/13/25 22:48 0.5 TAB Atorvastatin Calcium 40 mg HS PO 05/12/25 22:00 05/13/25 22:48 40 MG Laboratory Results Laboratory Tests 05/11/25 06:46 05/12/25 19:46 Urinalysis Test 05/10/25 10:59 Urine Color Light-yellow (Yellow) Urine Clarity Clear (Clear) Urine pH 5.5 (5.0-9.0) Urine Specific [place] 1.006 (1.001-1.035) Urine Protein Negative (Negative) Urine Ketones Negative (Negative) Urine Blood Negative /uL (Negative) Urine Nitrite Negative (Negative) Urine Bilirubin Negative (Negative) Urine Urobilinogen Normal mg/dL (Negative) Urine Leukocyte Esterase Negative /uL (Negative) Urine RBC <1 /hpf (0 - 3) Urine Microscopic WBC < 1 /HPF (0-3) Urine Squamous Epithelial Cells Few /hpf (<5) Urine Bacteria None seen /hpf (None Seen) Urine Glucose 4+ mg/dL (Normal) H Labs and/or images reviewed: Labs reviewed by me, Image(s) reviewed by me Assessment/Plan Assessment/Plan Acute on chronic decompensated HFrEF, NYHA class III, cardiology consult by Dr. 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
[2025-05-14] MEDS ORDERED: FURO1TAB31 PO (10:51)
--- NOTE | 2025-05-14 10:54 | DVHDS2 ---
Discharge Summary Date of Admission May 10, 2025 at 10:06 Date of Discharge: May 14, 2025 Admitting Diagnosis Shortness of breath Wounds: None Labs/Diagnostic Data: Laboratory Results Test 05/14/25 06:08 05/12/25 19:46 05/12/25 13:07 05/11/25 14:52 POC Glucose 155 mg/dl (70-106) Sodium Level 142 mmol/L (136-145) Potassium Level 3.7 mmol/L (3.5-5.1) Chloride Level 102 mmol/L (98-107) Carbon Dioxide Level 30 mmol/L (20-31) Anion Gap 10 (5-15) Blood Urea Nitrogen 19 mg/dL (9-23) Creatinine 1.01 mg/dL (0.700-1.30) Glomerular Filtration Rate Calc 83 mL/min (>90) BUN/Creatinine Ratio 18.8 (10.0-20.0) Serum Glucose 185 mg/dL (74-106) Calcium Level 8.5 mg/dL (8.7-10.4) Magnesium Level 1.5 mg/dL (1.6-2.6) Triglycerides Level 237 mg/dL (< 150) Cholesterol Level 184 mg/dL (< 200) LDL Cholesterol 123 mg/dL (< 100) HDL Cholesterol 47 mg/dL (40-59) Thyroid Stimulating Hormone (TSH) 3.26 uIU/mL (0.55-4.78) Influenza Type A Antigen Negative (Negative) Influenza Type B Antigen Negative (Negative) SARS-CoV-2 Antigen (Rapid) Negative (NEGATIVE) Test 05/11/25 06:46 05/10/25 11:29 05/10/25 10:59 05/10/25 09:52 White Blood Count 9.7 10^3/uL (4.4-10.8) Red Blood Count 4.26 10^6/uL (4.5-5.90) Hemoglobin 13.9 g/dL (13.5-17.5) Hematocrit 39.9 % (41.0-53.0) Mean Corpuscular Volume 93.7 fL (80.0-100.0) Mean Corpuscular Hemoglobin 32.6 pg (28.0-32.0) Mean Corpuscular Hemoglobin Concent 34.8 g/dL (32.0-36.0) Red Cell Distribution Width 13.5 % (11.8-14.3) Platelet Count 189 10^3/uL (140-450) Mean Platelet Volume 9.1 fL (6.9-10.8) Neutrophils (%) (Auto) 86.0 % (37.0-80.0) Lymphocytes (%) (Auto) 9.7 % (10.0-50.0) Monocytes (%) (Auto) 4.3 % (0.0-12.0) Eosinophils (%) (Auto) 0.0 % (0.0-7.0) Basophils (%) (Auto) 0.0 % (0.0-2.0) Neutrophils # (Auto) 8.3 10 ^3/uL (1.6-8.6) Lymphocytes # (Auto) 0.9 10 ^3/uL (0.4-5.4) Monocytes # (Auto) 0.4 10 ^3/uL (0-1.3) Eosinophils # (Auto) 0 10 ^3/uL (0-0.8) Basophils # (Auto) 0 10 ^3/uL (0-0.2) Nucleated Red Blood Cells 0.0 % Total Bilirubin 1.3 mg/dL (0.2-1.0) Aspartate Amino Transferase (AST) 27 U/L (13-40) Alanine Aminotransferase (ALT) 29 U/L (7-40) Alkaline Phosphatase 54 U/L (46-116) Total Protein 6.4 g/dL (5.7-8.2) Albumin 3.7 g/dL (3.2-4.8) Troponin I High Sensitivity 45 ng/L (</=54) Urine Color Light-yellow (Yellow) Urine Clarity Clear (Clear) Urine pH 5.5 (5.0-9.0) Urine Specific [place] 1.006 (1.001-1.035) Urine Protein Negative (Negative) Urine Ketones Negative (Negative) Urine Blood Negative /uL (Negative) Urine Nitrite Negative (Negative) Urine Bilirubin Negative (Negative) Urine Urobilinogen Normal mg/dL (Negative) Urine Leukocyte Esterase Negative /uL (Negative) Urine RBC <1 /hpf (0 - 3) Urine Microscopic WBC < 1 /HPF (0-3) Urine Squamous Epithelial Cells Few /hpf (<5) Urine Bacteria None seen /hpf (None Seen) Urine Glucose 4+ mg/dL (Normal) Urine Opiates Screen Neg (NEGATIVE) Urine Fentanyl Screen Neg (NEGATIVE) Urine Barbiturates Screen Neg (NEGATIVE) Urine Phencyclidine Screen Neg (NEGATIVE) Urine Amphetamines Screen Neg (NEGATIVE) Urine Benzodiazepines Screen Neg (NEGATIVE) Urine Cocaine Screen Neg (NEGATIVE) Urine Cannabinoids Screen Neg (NEGATIVE) C-Reactive Protein High Sensitivity 0.32 mg/dL (<1.0) Test 05/10/25 09:22 05/10/25 08:26 05/10/25 08:23 Blood Gas Specimen Type Arterial Blood Gas Sample Site Right radial Blood Gas Patient Temperature 37.0 Arterial Blood Date Drawn Arterial Blood pH 7.433 (7.350-7.450) Arterial Blood Partial Pressure CO2 36.7 mmHg (35.0-48.0) Arterial Blood Partial Pressure O2 84.2 mmHg (83.0-108.0) Arterial Blood HCO3 24.0 mmol/L (21.0-28.0) Arterial Blood Oxygen Saturation 96.5 % (94.0-98.0) Arterial Blood Base Excess 0.1 mmol/L (-2.0-3.0) Arterial Blood Oxyhemoglobin 94.8 % (94.0-98.0) Arterial Blood Carboxyhemoglobin 1.5 % (0.5-1.5) Arterial Blood Methemoglobin 0.3 % (0.0-1.5) Keron Test Yes Blood Gas Total Hemoglobin 14.60 g/dL (13.5-17.5) Blood Gas Set Respiration Rate 12.0 Blood Gas Modality Mask - bipap FiO2 % 35.0 Blood Gas EPAP 5 Blood Gas IPAP 15 Erythrocyte Sedimentation Rate 13 mm/hr (0-20) Hemoglobin A1c 8.1 % A1C (<5.7) B-Type Natriuretic Peptide 379.24 pg/mL (0-100) D-Dimer, Quantitative 0.45 mg/L FEU (0.0-0.49) Creatine Kinase 228 U/L (46-171) Other Laboratory Tests 05/12/25 19:46 05/11/25 06:46 Brief Hx & Hospital Course: 64-year-old male with a history of heart disease hypertension hypercholesterolemia type 2 diabetes came in complaining of shortness of breaths found to have acute exacerbation of chronic systolic congestive heart failure ejection fraction 10 percent treated with the Lasix Entresto Jardiance Lipitor. A1c 8.1 percent also has severe pulmonary hypertension patient was fitted with a Zoloft [place] dialysis ejection fraction is only 10 percent. Being discharged home he has an appointment with the his home health nurse at [facility] and he will follow up. Consults/Reason for consult Cardiology Dr. Zamora Operations or Procedures Echocardiogram Condition at Discharge: Fair Final Diagnosis/Problems List Acute on chronic decompensated HFrEF, NYHA class III, cardiology consult by Dr. Zamora appreciated, ejection fraction 10% Nonischemic cardiomyopathy Hypertension Dyslipidemia Type 2 diabetes mellitus, uncontrolled (A1c 8.1%) Severe pulmonary hypertension Morbidly obese LifeVest fitted Discharge Disposition: Home Discharge Instruct/Medications Diet: Cardiac 2g Na,low cholest Activity: Light activity Follow Up/Referral: Resume all your previous home medications Follow up with your home health nurse at [facility] Use new medications as prescribed Medications: Jardiance Lipitor Entresto Transmitted to [facility] Reviewed all other home meds Scheduled Atorvastatin Calcium (Lipitor), 1 TAB PO QPM Azithromycin (Azithromycin), 1 TAB PO DAILY Carvedilol (Carvedilol), 1 TAB PO BID, (Reported) Empagliflozin (Jardiance), 10 MG PO DAILY Furosemide (Lasix), 40 MG PO DAILY Sacubitril-Valsartan (Entresto 97-103 mg), 200 TAB PO BIDWM, (Reported) Sacubitril-Valsartan (Entresto 24-26 mg), 1 TAB PO BID Miscellaneous Medications Allopurinol (Zyloprim Tablet), 300 MG GT, (Reported) 39 (Time taken for discharge summary 39 mts) Discharge Statement: "Patient was advised to return to the ER or call 911 if any headaches, dizziness, shortness of breath, chest pain, abdominal pain, bleeding, fevers, or worsening of medical condition. Patient was counseled about treatment plan, medications, possible side effects, patientverbalized understanding. All questions were answered to the best of my ability. This discharge took greater then 30 minutes in planning, reviewing documentation, counseling the patient, and discussing with other team members." ASSESSMENT ASSESSMENT Hospital Course Uneventful Assessment Acute on chronic decompensated HFrEF, NYHA class III, cardiology consult by Dr. Zamora appreciated, ejection fraction 10% Nonischemic cardiomyopathy Hypertension Dyslipidemia Type 2 diabetes mellitus, uncontrolled (A1c 8.1%) Severe pulmonary hypertension Morbidly obese LifeVest fitted Date of Service: May 14, 2025 Billing Provider: AYLA GAMA MD Common Visit Codes: [id number] DISCH DAY >30min AYLA GAMA MD May 14, 2025 10:54
[2025-05-14] MEDS ORDERED: ATORVASTATIN 20 MG TAB PO SCH (22:00)
== END 2025-05-14 15:27 | disposition home or self-care (01) | DRG 177 ==
LOC: ER 07:54 → EDBD 07:54 → OVERFLOW 10:06 → EAST 21:38 → TELE-EAST 05-12 16:56
PROVIDERS: ADMIT Family Medicine; ATTEND Family Medicine
PROC: 5A09357 Assistance with Respiratory Ventilation, Less than 24 Consecutive Hours, Continuous Positive Airway Pressure (ICD-10-PCS; principal; 2025-05-10)
DX: J15.69 Pneumonia due to other Gram-negative bacteria (principal); I50.23 Acute on chronic systolic (congestive) heart failure; J96.01 Acute respiratory failure with hypoxia; Z68.42 Body mass index [BMI] 45.0-49.9, adult; I42.8 Other cardiomyopathies; I11.0 Hypertensive heart disease with heart failure; J15.9 Unspecified bacterial pneumonia; E66.01 Morbid (severe) obesity due to excess calories; Z20.822 Contact with and (suspected) exposure to COVID-19; I27.20 Pulmonary hypertension, unspecified; I44.7 Left bundle-branch block, unspecified; E11.65 Type 2 diabetes mellitus with hyperglycemia; E78.00 Pure hypercholesterolemia, unspecified; I25.2 Old myocardial infarction; Z83.3 Family history of diabetes mellitus; Z82.49 Family history of ischemic heart disease and other diseases of the circulatory system; Z88.0 Allergy status to penicillin
CPT/HCPCS: 36415; 36600; 71045; 80048; 80053; 80061; 80307; 81001; 82550; 82805; 82962; 83036; 83735; 83880; 84443; 84484; 85025; 85379; 85652; 86141; 87426; 87804; 93005; 93306; 93970; 94640; 94660; 96374; 99291; G0378; J1100; J1815